=== PATIENT | male | born 1995 | race Caucasian/White ===

== ENCOUNTER 2018-06-07 19:23 | Emergency (ER) | payer SELFPAY ==
[~2018-06-07] VITALS: Ht 182.9 cm; Wt 68.0 kg
[~2018-06-07 19:23] MED LIST: BENADRYL25 MG PO; CEPH500 PO; CITA20 PO; NAPR500 PO; PENVK500 PO; Permethrin60 GM TP; Prednisone20 MG PO; Zofran Odt4 MG SL
[2018-06-07] MEDS ORDERED: CEPH500 PO (21:08)
[2018-06-07] MEDS ORDERED: Bactrim Ds Tab1 EACH PO (21:08)
== END 2018-06-07 21:19 | disposition home or self-care (01) ==
LOC: ER 19:23
DX: N49.2 Inflammatory disorders of scrotum (principal)
CPT/HCPCS: 99283